=== PATIENT | male | born 1985 | race Native Hawaiian/Other Pacific Islander ===

== ENCOUNTER 2018-07-11 09:45 | Outpatient (CLI) | payer OTHER | END 2018-07-11 09:46 | disposition home or self-care (01) | LOC: C.LAB 09:45 ==

== ENCOUNTER 2018-08-14 11:36 | Outpatient (CLI) | payer OTHER | END 2018-08-14 11:37 | disposition home or self-care (01) | LOC: C.PAT 11:36 | DX: N18.3 Chronic kidney disease, stage 3 (moderate) (principal); R80.9 Proteinuria, unspecified; N04.9 Nephrotic syndrome with unspecified morphologic changes; E78.5 Hyperlipidemia, unspecified; J45.909 Unspecified asthma, uncomplicated; Z87.2 Personal history of diseases of the skin and subcutaneous tissue ==

== ENCOUNTER 2018-10-06 09:34 | Outpatient (CLI) | payer OTHER | END 2018-10-06 09:35 | disposition home or self-care (01) | LOC: C.LAB 09:34 | DX: N18.3 Chronic kidney disease, stage 3 (moderate) (principal) ==